=== PATIENT | male | born 1940 | race Caucasian/White ===

== ENCOUNTER 2017-11-05 10:56 | Outpatient (CLI) | payer MEDICARE, OTHER ==
[~2017-11-05] VITALS: Ht 172.7 cm; Wt 81.8 kg
--- NOTE | ~2017-11-05 | OP ---
PATIENT NAME: ALISA GOODEN MEDICAL RECORD: [id number] :38 LOCATION:.CAT ADMISSION DATE: SURGEON: EDIL SPRAGUE MD DATE OF OPERATION: 11/05/2017 PREOPERATIVE DIAGNOSIS: Pacemaker generator at end of life. POSTOPERATIVE DIAGNOSIS: Pacemaker generator at the end of life. PROCEDURE: Pacemaker generator change out. SURGEON: Edil Sprague MD ASSOCIATE STORE DIRECTOR: None. BLOOD LOSS: Minimal. ANESTHESIA: Local with IV sedation. COMPLICATIONS: None. The risks, possible complications, and alternatives to the procedure were explained to the patient. He elects to proceed. OPERATIVE COURSE: The patient was seen in the cardiac catheterization laboratory. The left neck was sterilely prepped and draped. IV sedation was induced by the nursing staff under my direction. A local anesthetic was used to infiltrate the skin and subcutaneous tissue overlying the pacemaker generator. I incised through the scar. I dissected down to the pacemaker generator pocket. This was incised. The pacemaker generator was delivered. I confirmed with the pacemaker agency sales representative the ventricular lead serial number. I then took the wrench and unscrewed the screw on the ventricular dock of the pacemaker. We then checked thresholds, which were appropriate. I placed the ventricular lead in the ventricular dock of the new pacemaker generator and then tightened down with a wrench. I tried to dislodge the lead and was unable to do so. I then confirmed with the pacemaker agency sales representative the serial number of the atrial lead. I unscrewed the atrial lead. We then checked threshold on atrial lead, which were appropriate. I placed the atrial lead in the atrial dock of the new pacemaker generator and tightened down with the wrench. I placed pacemaker generator in the pocket. I irrigated with normal saline. The pacemaker was sutured to the underlying pseudobursa with a 2-0 TiCron. The deep adipose tissue was closed with interrupted 3-0 Vicryls. The subcutaneous adipose tissue was closed with interrupted 3-0 Vicryls. The skin was approximated with a running intracuticular 4-0 Vicryl. A sterile dressing was applied. The patient was then conveyed back to the post-cardiac catheterization area. I will see the patient on a p.r.n. basis. There is no need for the patient to follow up with me in the office unless he develops a complication related to this operative procedure. He will be dismissed home on hydrocodone for pain. TRANSINT:[id number] Voice Confirmation ID: [id number] DOCUMENT ID: [id number] OPERATIVE REPORT [id number] ALISA GOODEN ROBERT MD at 0938 CC: ANNIE MUNGUIA MD [id number] DICTATION DATE: 11/05/17 1430 TELEPRINTER INSTALLER: 11/05/17 1553 DEP CLI 11/05/17 [place] [id number]
--- NOTE | ~2017-11-05 | HEMODYNAMI ---
PATIENT:ALISA GOODEN MEDICAL RECORD: [id number] : 38 LOCATION:D.CAT ADMISSION DATE: 11/05/17 Generatedon:11/05/201713:53 Patient name: ALISA GOODEN Patient #: [id number] SSN: : 1940 Date of study: 11/05/2017 Page: Of Hemodynamic Procedure Report Patient Data Patient Demographics Procedure consent was obtained First Name: ALISA Gender: Male Last Name: GIACOMO : 1940 Middle Initial: W Age: 77 year(s) Patient #: [id number] Race: Additional ID: [id number] Contact details Address: [address] [place] [address] [facility] State: [place] City: [place] Zip code: [address] Past Medical History Allergies Allergen Reaction Date Comments Reported LINDA inhibitors 08/20/2015 Admission Admission Data Admission Date: 11/05/2017 Admission Time: 10:56 Height (in.): 5.7 BSA: 0.33 (m2) Height (cm.): 14.48 BMI: 3938.4 (kg/m2) Weight (lbs.): 182 Weight (kg.): 82.55 Lab Results Lab Result Date: 11/05/2017 Lab Result Time: 0:00 Biochemistry Name Units Result Min Max BUN mg/dl 26 --(----)-* 7 18 Creatinine mg/dl 1.2 --(---*)-- 0.6 1.3 CBC Name Units Result Min Max Hemoglobin g/dl 13.4 -*(----)-- 13.5 17.5 Procedure Procedure Types Cath Procedure Diagnostic Procedure PPM/ICD Permanent Pacer Generator Exg. Miscellaneous Procedures Moderate Sedation up to 15 minutes Procedure Description Procedure Date Procedure Date: 11/05/2017 Procedure Start Time: 13:30 Procedure End Time: 13:52 Procedure Staff Name Function Nicholas Curran RT Monitor Edil White MD Performing Physician Nino Galloway RT Scrub Bo Saini RN Nurse Procedure Data Cath Procedure Fluoroscopy Diagnostic fluoroscopy Total fluoroscopy Time: 0.1 time: 0.1 min min Diagnostic fluoroscopy Total fluoroscopy dose: dose: 2.04 mGy 2.04 mGy Estimated blood loss: 10 ml Procedure Medications Medication Administration Route Dosage 0.9% NaCl I.V. 100 ml/hr Oxygen NC 2 l/min Ancef (1Gm/50ml NS) I.V.P.B 1 g Ancef Irrigation Topical 1 g (1gm/500ml NS) Lidocaine 1% with added to field 20 ml Epi Bupivacaine 0.5% S.Q. 10 ml Versed I.V. 2 mg Fentanyl I.V. 100 mcg Hemodynamics Rest BSA: 0.33 (m2) HGB: 13.4 (g/dl) O2 Consumption: Estimated: 37.3 (ml/min) O2 Cons umption indexed: Estimated:113.03 (ml/min/m) Heart Rate: 66 (bpm) Snapshots Pre Cath Intra NCS Post Cath Vital Signs Time Heart Resp SPO2 etCO2 NIBP (mmHg) Rhythm Pain Sedation Rate (ipm) (%) (mmHg) Status Level (bpm) 13:19:15 65 17 96 33.5 130/88(105) NSR 0 (11) 10(A) , No pain 13:23:27 65 15 97 35.7 132/84(114) NSR 0 (11) 10(A) , No pain 13:27:39 65 18 96 40.2 117/71(95) NSR 0 (11) 10(A) , No pain 13:31:49 59 13 92 42.3 105/67(85) NSR 0 (11) 9(A) , No pain 13:35:57 60 14 97 33.4 117/76(88) NSR 0 (11) 9(A) , No pain 13:40:09 60 9 96 31.2 118/74(89) NSR 0 (11) 9(A) , No pain 13:44:21 58 10 97 31.9 114/69(88) NSR 0 (11) 9(A) , No pain 13:48:31 63 13 98 20 119/74(80) NSR 0 (11) 9(A) , No pain 13:52:30 0 No Cuff NSR 0 (11) 9(A) , No pain Medications Time Medication Route Dose Verified Delivered Reason Notes Effectiv eness by by 13:17:16 0.9% NaCl I.V. 100 Bo Bo Per ml/hr Parveen Saini physician RN RN 13:17:26 Oxygen NC 2 Bo Bo Per l/min Parveen Saini physician RN RN 13:17:45 Ancef I.V.P.B 1 g Bo Bo Per (1Gm/50ml Parveen Saini physician NS) RN RN 13:18:08 Ancef Topical 1 g Bo Bo used for Irrigation Lorigan Lorigan procedure (1gm/500ml RN RN NS) 13:18:36 Lidocaine added 20 ml Bo Bo for local 1% with Epi to Lorigan Lorigan anesthetic field RN RN 13:20:23 Bupivacaine S.Q. 10 ml Bo Bo for local 0.5% Lorigan Lorigan anesthetic RN RN 13:26:00 Versed I.V. 2 mg Bo Bo for Lorigan Lorigan sedation RN RN 13:26:09 Fentanyl I.V. 100 Bo Bo for mcg Lorigan Lorigan sedation RN captain airline pilot Log Time Note 13:00:15 Nicholas Curran RT(R) sent for patient. Start room use. 13:04:58 Time tracking: Regular hours 13:05:01 Plan of Care:Hemodynamics will remain stable., Cardiac rhythm will remain stable., Comfort level will be maintained., Respiratory function will remain adequate., Patient/ family verbilizes understanding of procedure., Procedure tolerated without complication., Recovers from procedure without complications.. 13:05:33 H&P Date Dictated: 11/04/2017 Within 30 days and on chart., H&P Addendum completed by physician on day of procedure. (MUST COMPLETE FOR ALL OUTPATIENTS). 13:06:51 Lab Result : Creatinine 1.2 mg/dl 13:06:51 Lab Result : BUN 26 mg/dl 13:06:51 Lab Result : Hemoglobin 13.4 g/dl 13:08:00 Patient Height : 5.7 inches 13:08:05 Patient Weight : 182 lbs 13:09:17 Patient received from Pre/Post Procedure Room to CCL 3 Alert and oriented. Tansferred to table in Supine position. 13:09:18 Warm blankets applied, and adonis hugger turned on for patient comfort. 13:09:18 Correct patient and procedure confirmed by team. ::20 Signed procedure consent form obtained from patient. 13::21 ECG and BP/O2 sat monitors applied to patient. 13:17:16 0.9% NaCl 100 ml/hr I.V. was administered by Bo Saini RN; Per physician; :17:26 Oxygen 2 l/min NC was administered by Bo Saini RN; Per physician; 13:17:45 Ancef (1Gm/50ml NS) 1 g I.V.P.B was administered by Bo Saini RN; Per physician; 13:18:08 Ancef Irrigation (1gm/500ml NS) 1 g Topical was administered by Bo Saini RN; used for procedure; 13:18:14 Vital chart was started 13:18:36 Lidocaine 1% with Epi 20 ml added to field was administered by Bo Saini RN; for local anesthetic; ::23 Bupivacaine 0.5% 10 ml S.Q. was administered by Bo Saini RN; for local anesthetic; ::29 Baseline sample Acquired. 13::33 Rhythm: paced 13::35 Full Disclosure recording started 13::39 Pre-procedure instructions explained to patient. 13:24:41 Pre-op teaching completed and patient verbalized understanding. 13:24:44 Family in waiting room. ::49 Patient NPO since Breakfast. 13:26:00 Versed 2 mg I.V. was administered by Bo Saini RN; for sedation; ::09 Fentanyl 100 mcg I.V. was administered by Bo Saini RN; for sedation; ::23 Procedure started. 13:29:34 [employer] community service representative ISAAC JOHN present for procedure. 13:29:37 Physician arrived 13::38 --------ALL STOP TIME OUT------ 13:29:40 Final Timeout: patient, procedure, and site verified with staff and physician. All members of the team are in agreement. 13:29:43 Left chest site verified by team. 13::49 Physical assessment completed. ASA score P 2 - A patient with mild systemic disease as per Edil White MD. 13:29:52 Pre sharps counted by scrub and verified by RN: Sutures: 8; Sponges: 5; Stick needles: 0; Skin needles: 2; Blade: 1; Cautery: 1 13:29:56 Sedation plan: IV Moderate Sedation Medication:Versed, Fentanyl 13:30:03 Grounding pad site Left thigh. 13:30:17 Lidocaine 1% w/epi and Bupivacaine 0.5% was administered to left subclavicular area by Edil White MD . 13:31:05 3.0 Vicryl Multipack [id number] opened to sterile field. 13:31:08 3.0 Vicryl Single Pack [id number] opened to sterile field. 13:31:30 Cautery Pushbutton Pencil opened to sterile field. 13:31:31 Mepilex Dressing ([id number]) opened to sterile field. 13:31:33 Cautery Tip Sewage Disposal Worker opened to sterile field. 13:32:[address] Pacemaker [id number] opened to sterile field. 13:33:33 2.0 Ticron Multipack ([id number]) opened to sterile field. 13:33:38 Incision made to left subclavicular area. 13:33:46 Generator pocket made/opened. 13:34:12 PPM Dual was removed.. 13:34:21 Ventricular lead tested. 13:35:17 5.0 TICRON MULTI PACK OF 5 SUTURE OPENRD TO THE FIELD. COUNT OF 14 TOTAL SUTURE 13:35:57 Device pocket was irrigated with Ancef. 13:36:05 PPM Dual was attached to lead(s) and inserted into pocket. 13:37:58 Generator was sutured in place with 2-0 ticron. 13:42:11 Subcutaneous closure was completed with 3-0 vicryl plus. 13:44:41 Skin closure was completed with 3-0 vicryl plus. 13:44:50 Lt Chest incision was dressed with Mepilex dressing. 13:44:55 Procedure ended.(Physican Out) 13:46:51 Post sharps counted by scrub and verified by RN: Sutures: 14; Sponges: 5; Stick needles: 0; Skin needles: 2; Blade: 1; Cautery: 1 13:51:24 Fluoroscopy time 00.10 minutes. 13:51:30 Fluoroscopy dose: 2.04 mGy 13:51:30 Flurop Dose total: 2.04 13:51:37 Estimated blood loss: 10 ml 13:51:43 Post-procedure physical assessment completed. ASA score P 2 - A patient with mild systemic disease as per Edil White MD. 13:51:46 Post procedure instruction explained to patient.Patient verbalizes understanding. 13:51:47 Patient needs reinforcement of post procedure teaching. 13:51:55 Post procedure rhythm: paced 13:52:02 Procedure and supply charges have been captured, reviewed, submitted and are correct. 13:52:39 Vital chart was stopped 13:52:40 See physician's report for complete and final results. 13:52:42 Report given to Pre/Post Procedure Room. 13:52:46 Patient transfered to Pre/Post Procedure Room with Stretcher. 13:52:49 Procedure ended. 13:52:49 Full Disclosure recording stopped 13:52:58 End room use (Document Last) Device Usage Item Name Manufacture Quantity Catalog Hospital Part Current Minimal Lot# / Number Charge Number Stock Stock Serial# Code 3.0 Vicryl Ethicon 1 [id number] 5 Multipack [id number] 3.0 Vicryl Ethicon 1 [id number] [id number] [id number] [id number] 5 Single Pack [id number] Cautery Microtek 1 [id number] 40076 [id number] 5 Pushbutton [employer] Pencil Mepilex Cardinal 1 [id number] 820997 [id number] [id number] 5 Dressing Health (460717) Cautery Tip Microtek 1 [id number] [id number] 169737 142563 5 Sewage Disposal Worker [employer] Medtronic Medtronic 1 [id number] [id number] 2875[address] Pacemaker ADDRS1 2.0 Ticron Ethicon 8 [id number] 189912 37267 198710 5 Multipack ([id number]) Signature Audit [place] Stage Time Signature Unsigned Intra-Procedure 11/05/2017 Nino Galloway 1:53:19 PM RT(R) (CV) Signatures Monitor : Nicholas Curran RT Signature : Date : Time : [address] [address]
[~2017-11-05 10:56] MED LIST: BAYER CHEWABLE81 MG PO; BETAPACE 80 MG80 MG PO; CYCLOBENZAPRINE10 MG PO; HYDROCODONE-APA1 TAB PO; HYZAAR 100-25 T1 TAB PO; PLAVIX75 MG PO; PRAVACHOL20 MG PO; ZYLOPRIM100 MG PO
[2017-11-05] MEDS ORDERED: GLUCOPHAGE500 MG PO (11:28)
[2017-11-05 11:45] VITALS: BP 119/86; Ht 172.7 cm; Wt 81.8 kg
[2017-11-05 11:56] LABS: HEMATOCRIT 40.2 % (42.0-54.0); HEMOGLOBIN 13.4 g/dL (13.5-17.5); MCHC 33.3 g/dL (31.0-37.0); MCV 90.1 fL (80.0-100.0); MEAN PLATELET VOLUME 11.9 fL (7.4-10.4); RBC 4.46 10x6/uL (4.20-6.10); RDW 12.9 % (11.5-14.5); WBC 6.5 10x3/uL (4.8-10.8)
[2017-11-05 12:14] LABS: ANION GAP 14.9 mmol/L (8-16); CALCIUM 9.1 mg/dL (8.5-10.1); CARBON DIOXIDE 26.6 mmol/L (21.0-32.0); CREATININE - SERUM 1.2 mg/dL (0.6-1.3); POTASSIUM - SERUM 4.5 mmol/L (3.5-5.1)
[2017-11-05 12:38] LABS: INR 1.01 (0.85-1.17); PROTIME 12.9 SECONDS (11.6-15.0)
[2017-11-05] MEDS ORDERED: HYDROCODON-ACE1 EAC7 PO (14:18)
[2017-11-05] MEDS ORDERED: BETAPACE 80 MG80 MG PO (15:32)
== END 2017-11-05 16:15 | disposition home or self-care (01) ==
LOC: D.CATH 10:56
PROVIDERS: Internal Medicine Interventional Cardiology
DX: I49.5 Sick sinus syndrome (principal); R42 Dizziness and giddiness; I10 Essential (primary) hypertension; Z95.0 Presence of cardiac pacemaker; I25.10 Atherosclerotic heart disease of native coronary artery without angina pectoris; Z01.812 Encounter for preprocedural laboratory examination

== ENCOUNTER → 2018-12-06 10:41 | Outpatient (CLI) | payer MEDICARE, OTHER ==
[2017-11-05 11:45] VITALS: BMI 27.4
[~2018-12-06 10:41] MED LIST changes: +GLUCOPHAGE500 MG PO; +GLUCOTROL ER2.5 MG PO; +HYDROCODON-ACE1 EAC7 PO
--- NOTE | 2018-12-07 10:45 | ST ---
PATIENT:ALISA GOODEN MEDICAL RECORD: [id number] SEX: M LOCATION:[facility] ORDER #: ADMISSION DATE: 12/06/18 AGE OF PATIENT: 78 REFERRING PHYSICIAN: INTERPRETING PHYSICIAN: ANNIE MUNGUIA MD DATE OF SERVICE: 12/06/2018 PROCEDURE: Nuclear stress test. INDICATION: Angina, abnormal ECG, atrial fibrillation, hypertension, and hyperlipidemia. He was exercised on standard Lexiscan protocol with 31 mCi of sestamibi injected at peak stress, 11 mCi were used previously for rest images. FINDINGS: Gated SPECT reveals preserved ejection fraction at 74% with good wall motioning and thickening and brightening throughout all segments. SPECT imaging Cardiolite was used as myocardial fusion agent. There is reversibility inferiorly. This includes the basal, mid, apical, inferior segments extending into the apex itself. The degree of reversibility is mild to moderate. The amount of myocardial involved is moderate. OVERALL IMPRESSION: 1. This is an abnormal nuclear stress test with reversible ischemia inferiorly. 2. Gated SPECT reveals preserved ejection fraction greater than 60%. In this patient with ongoing symptomatology, the current scan does suggest the presence of hemodynamically significant coronary artery disease. We will proceed with coronary angiography as a followup to this study. TRANSINT:[id number] Voice Confirmation ID: [id number] DOCUMENT ID: [id number] ANNIE MUNGUIA MD at 1045 CC: [id number] DICTATION DATE: 12/06/18 1522 SPEECH THERAPIST TECHNICIAN: 12/07/18 0515 DEP CLI 12/06/18 [place] [id number]
== END | disposition home or self-care (01) ==
LOC: D.HCCARDIO 10:41
DX: I20.9 Angina pectoris, unspecified (principal)

== ENCOUNTER 2018-12-13 09:16 | Outpatient (CLI) | payer MEDICARE, OTHER ==
[~2018-12-13] VITALS: Ht 172.7 cm; Wt 79.5 kg
--- NOTE | ~2018-12-13 | HEMODYNAMI ---
PATIENT:ALISA GOODEN MEDICAL RECORD: [id number] : 38 LOCATION:D.CAT ADMISSION DATE: 12/13/18 Generatedon:12/13/201811:21 Patient name: ALISA GOODEN Patient #: [id number] SSN: : 1940 Date of study: 12/13/2018 Page: Of Hemodynamic Procedure Report Patient Data Patient Demographics Procedure consent was obtained First Name: ALISA Gender: Male Last Name: GIACOMO : 1940 Middle Initial: W Age: 78 year(s) Patient #: [id number] Race: Additional ID: [id number] Contact details Address: [address] [place] [address] [facility] State: [place] City: [place] Zip code: [address] Past Medical History Allergies Allergen Reaction Date Comments Reported LINDA inhibitors 08/20/2015 Other allergy 12/13/2018 LINDA Inhibitors Admission Admission Data Admission Date: 12/13/2018 Admission Time: 9:16 Lab Results Lab Result Date: 12/13/2018 Lab Result Time: 9:40 Biochemistry Name Units Result Min Max BUN mg/dl 25 --(----)-* 7 18 Creatinine mg/dl 1.1 --(--*-)-- 0.6 1.3 CBC Name Units Result Min Max Hematocrit % 43.1 --(*---)-- 42 54 Hemoglobin g/dl 14.6 --(-*--)-- 13.5 17.5 Procedure Procedure Types Cath Procedure Diagnostic Procedure LHC LHC w/Coronaries FFR/IVUS Intra-Coronary IVUS Initial PCI Procedure Coronary Stent Coronary Stent Initial x2 Procedure Description Procedure Date Procedure Date: 12/13/2018 Procedure Start Time: 11:01 Procedure End Time: 11:17 Procedure Staff Name Function Jony Orozco MD Performing Physician Kobi Johnson RT Director Script Buster Jefferson RT Monitor Milvia Pollack RT Scrub Sidney Jolly RN Nurse Procedure Data Cath Procedure Fluoroscopy Diagnostic fluoroscopy Total fluoroscopy Time: 4.2 time: 4.2 min min Diagnostic fluoroscopy Total fluoroscopy dose: 767 dose: 767 mGy mGy Contrast Material Contrast Material Type Amount (ml) Isovue 300 65 Entry Location Entry Primary Successful Side Size Upsize Upsize Entry Closure Puckett ccessful Closure Location (Fr) 1 (Fr) 2 (Fr) Remarks Device Remarks Femoral Right 6 Fr Mechanical artery Short Compression Estimated blood loss: 10 ml Diagnostic catheters Device Type Used For End Catheter Placement DIAGNOSTIC [place] 110cm 5 Procedure Fr catheter ([id number]) Procedure Complications No complications Procedure Medications Medication Administration Route Dosage Oxygen etCO2 Nasal cannula 2 l/min Lidocaine 2% added to field 20 Heparin Flush Bag added to field 2 bags (1000units/500ml NS) 0.9% NaCl I.V. 100 ml/hr Radial Cocktail I.A. 1 syringe (Verapomil 2mg/Nitro 400mcg/Heparin 1500units) Versed I.V. 1 mg Fentanyl I.V. 50 mcg Versed I.V. 1 mg Fentanyl I.V. 50 mcg Heparin Bolus I.V. 4000 units Hemodynamics Rest HGB: 14.6 (g/dl) Heart Rate: 60 (bpm) Snapshots Pre Cath Intra NCS Post Cath Vital Signs Time Heart Resp SPO2 etCO2 NIBP Rhythm Pain Sedation Rate (ipm) (%) (mmHg) (mmHg) Status Level (bpm) 10:54:44 60 16 93 18.2 118/76(92) NSR 0 (11) 10(A) , No pain 10:58:50 60 17 93 31.1 104/75(86) NSR 0 (11) 10(A) , No pain 11:02:54 60 16 94 33.4 110/67(84) NSR 0 (11) 9(A) , No pain 11:07:02 60 18 93 32.6 95/62(78) NSR 0 (11) 9(A) , No pain 11:11:03 60 17 92 31.9 97/60(80) NSR 0 (11) 9(A) , No pain 11:15:05 60 18 94 34.2 104/66(81) NSR 0 (11) 10(A) , No pain Medications Time Medication Route Dose Verified Delivered Reason Not es Effectiveness by by 10:52:59 Oxygen etCO2 2 l/min Jony Little used for Nasal Tausandy Jolly remanufacturing technician cannula 10:53:05 Lidocaine 2% added 20ml Jony Little used for to vial Pam Jolly RN procedure field 10:53:12 Heparin Flush added 2 bags Jony Little used for Bag to Pam Jolly RN procedure (1000units/500ml field NS) 10:53:20 0.9% NaCl I.V. 100 Jony Little Per physician ml/hr Pam Jolly RN 11:00:18 Versed I.V. 1 mg Jony Little for sedation Pam Jolly RN 11:00:24 Fentanyl I.V. 50 mcg Jony Little for sedation Pam Jolly RN 11:02:43 Radial Cocktail I.A. 1 Jony Borges for (Verapomil syringe Pam Orozco MD vasodilation 2mg/Nitro 400mcg/Heparin 1500units) 11:02:49 Versed I.V. 1 mg Jony Little for sedation Pam Jolly RN 11:02:52 Fentanyl I.V. 50 mcg Jony Little for sedation Pam Jolly RN 11:07:12 Heparin Bolus I.V. 4000 Jony Little for juanis ified units Pam Jolly RN anticoagulation with dr orozco Procedure Log Time Note 10:35:19 Kobi Johnson RT(R) sent for patient. Start room use. 10:35:20 Signed procedure consent form obtained from patient. 10:35:22 Diagnostic Cath status Elective 10:35:24 Time tracking: Regular hours (M-F 7:00 - 5:00) 10:35:28 Plan of Care:Hemodynamics will remain stable., Cardiac rhythm will remain stable., Comfort level will be maintained., Respiratory function will remain adequate., Patient/ family verbilizes understanding of procedure., Procedure tolerated without complication., Recovers from procedure without complications.. 10:42:05 Patient received from Pre/Post Procedure Room to CCL 2 Alert and oriented. Tansferred to table in Supine position. 10:42:07 Warm blankets applied, and adonis hugger turned on for patient comfort. 10:42:08 Correct patient and procedure confirmed by team. 10:42:48 ECG and BP/O2 sat monitors applied to patient. 10:42:58 H&P Date Dictated: 12/02/2018 Within 30 days and on chart., H&P Addendum completed by physician on day of procedure. (MUST COMPLETE FOR ALL OUTPATIENTS). 10:52:59 Oxygen 2 l/min etCO2 Nasal cannula was administered by Sidney Jolly RN; used for procedure; 10:53:05 Lidocaine 2% 20ml vial added to field was administered by Sidney Jolly RN; used for procedure; 10:53:12 Heparin Flush Bag (1000units/500ml NS) 2 bags added to field was administered by Sidney Jolly RN; used for procedure; 10:53:20 0.9% NaCl 100 ml/hr I.V. was administered by Sidney Jolly RN; Per physician; 10:53:36 Vital chart was started 10:55:24 Baseline sample Acquired. 10:55:29 Rhythm: sinus rhythm , paced 10:55:30 Full Disclosure recording started 10:55:31 Pre-procedure instructions explained to patient. 10:55:31 Pre-op teaching completed and patient verbalized understanding. 10:55:33 Family in waiting room. 10:55:34 Patient NPO since Midnight. 10:56:07 Patient allergic to Other allergyACE Inhibitors 10:56:09 Is the patient allergic to Iodine/contrast media? No. 10:56:10 Is patient on blood thinner?Yes 10:56:11 ACC The patient was administered the following blood thiners within the last 24 hours: ACCPlavix 10:56:13 Patient diabetic? Yes. 10:56:13 If diabetic: On Metformin? Yes 10:56:16 If on Metformin: Last Dose? 12/12/2018 10:56:18 Previous problem with sedation/anesthesia? No ? 10:56:19 Snore? Yes 10:56:20 Sleep apnea? No 10:56:21 Deviated septum? No 10:56:22 Opens mouth fully? Yes 10:56:22 Sticks out tongue? Yes 10:56:24 Airway obstruction? No ? 10:56:26 Dentures? No ? 10:56:27 Modified Viktor's test Ulnar < 7 seconds 10:56:29 Patient pain scale 0/10 ?. 10:56:34 IV patent on arrival in left forearm with 0.9% NaCl at [facility]. 10:57:05 Lab Result : BUN 25 mg/dl 10:57:05 Lab Result : Hemoglobin 14.6 g/dl 10:57:05 Lab Result : Creatinine 1.1 mg/dl 10:57:05 Lab Result : Hematocrit 43.1 % 10:57:07 Lab results completed and on chart. 10:57:09 Right Radial & Right Groin area was prepped with chlora-prep and draped in sterile fashion 10:57:10 Alarms reviewed by RWilfredo N. 10:57:10 Sharps counted by scrub and verified by R.N. 10:57:49 Physician paged 10:57:51 Use device set Radial Dx or PCI 10:57:53 ACIST Syringe (75838) opened to sterile field. 10:57:54 Medline Cath Pack ([id number]) opened to sterile field. 10:57:54 Bag Decanter (2002S) opened to sterile field. 10:57:55 ACIST Hand Control (06552) opened to sterile field. 10:57:55 ACIST Manifold (08387) opened to sterile field. 10:57:56 Tegaderm 4 x 4 (1626W) opened to sterile field. 10:57:56 MBrace Wrist Support ([id number]) opened to sterile field. 10:57:57 SHEATH 6FR Slender (78-2550) opened to sterile field. 10:57:58 DIAGNOSTIC WIRE .035 260cm J wire (041398) opened to sterile field. 10:59:06 Zero performed for pressure channel P1 10:59:51 Physician arrived 10:59:51 --------ALL STOP TIME OUT------ 10:59:52 Final Timeout: patient, procedure, and site verified with staff and physician. All members of the team are in agreement. 10:59:53 Right Radial & Right Groin site verified by team. 10:59:56 Fire Safety Assessment: A--An alcohol-based skin anteseptic being used preoperatively., C--Open oxygen or nitrous oxide is being used., D--An ESU, laser, or fiber-optic light is being used. 10:59:59 Physical assessment completed. ASA score P 2 - A patient with mild systemic disease as per Jony Orozco MD. 11:00:01 Sedation plan: IV Moderate Sedation Medication:Versed, Fentanyl 11:00:18 Versed 1 mg I.V. was administered by Buffie Jolly RN; for sedation; 11:00:24 Fentanyl 50 mcg I.V. was administered by Sidney Jolly RN; for sedation; 11::44 Procedure started. 11:01:48 Local anesthetic to right radial artery with Lidocaine 2% by Jony Orozco MD.INITIAL ACCESS ONLY 11::58 A 6 Fr Short sheath was inserted into the Right Femoral artery 11:02:05 A DIAGNOSTIC [place] 110cm 5 Fr catheter ([id number]) was advanced over the wire and used for Procedure. 11:02:43 Radial Cocktail (Verapomil 2mg/Nitro 400mcg/Heparin 1500units) 1 syringe I.A. was administered by Jony Orozco MD; for vasodilation; 11::49 Versed 1 mg I.V. was administered by Sidney Jolly RN; for sedation; 11::52 Fentanyl 50 mcg I.V. was administered by Sidney Jolly RN; for sedation; 11:03:13 LV gram done using ANDREWS 11:03:17 Injector settings: Ml/sec: 5, Volume: 15, 11:03:24 LV hemodynamics recorded. 11:03:40 EF : 55 % 11:04:12 RCA angiography performed. 11:04:30 Catheter exchanged over wire. 11:04:41 GUIDE 6FR EBU 3.0 catheter ([id number]) opened to sterile field. 11:04:51 6 Fr ebu 3 guide catheter was inserted over the wire 11:05:27 LCA angiography performed. 11:06:09 CHOICE PT Extra Support 182cm wire ([id number]) opened to sterile field. 11:06:10 INFLATOR Merit BasixCompak (PD1125) opened to sterile field. 11:06:14 [place] IVUS Catheter (13808G) opened to sterile field. 11:06:58 choice pt es wire advanced. 11:07:00 Wire advanced across lesion. 11:07:12 Heparin Bolus 4000 units I.V. was administered by Sidney Jolly RN; for anticoagulation; verified with dr orozco 11:09:12 Place stent Inflation Number: 1 A ARIEL RX 3.5 x 18 stent ([id number]) was prepped and advanced across the Prox LAD. The stent was deployed at 17 SURENDRA for 0:10 (min:sec). 11::26 Stent catheter was removed intact over wire. 11:09:30 Wire redirected to cx. 11:09:33 IVUS catheter advanced over wire. 11:09:36 IVUS pass to Circ lesion performed. 11:12:22 IVUS catheter removed over wire. 11:13:23 Place stent Inflation Number: 1 A INTEGRITY 4.0 x 18 stent ([id number]) was prepped and advanced across the Prox CX. The stent was deployed at 17 SURENDRA for 0:10 (min:sec). 11:13:26 Stent catheter was removed intact over wire. 11:13:27 Wire removed. 11:13:28 Guide catheter removed. 11:13:30 TR BAND Standard ([id number]) opened to sterile field. 11:13:39 Sheath removed intact; hemostasis achieved with Mechanical Compression to the Right Femoral artery. 11:13:40 Procedure ended.(Physican Out) 11:13:44 Contrast amount:Isovue 300 65ml. 11:14:54 Fluoroscopy time 04.20 minutes. 11:15:03 Fluoroscopy dose: 767 mGy 11:15:03 Flurop Dose total: 767 11:15:05 Sharps counted by scrub and verified by R.N. 11:15:13 TR band inflated with 12cc of air. 11:15:14 Insertion/operative site no bleeding no hematoma. 11:15:18 Post right radial artery:stable, soft, clean and dry 11:15:23 Post-procedure physical assessment completed. ASA score P 2 - A patient with mild systemic disease as per Jony Orozco MD. 11:15:28 Post procedure rhythm: unchanged. 11:15:30 Estimated blood loss: 10 ml 11:15:31 Post procedure instruction explained to patient.Patient verbalizes understanding. 11:15:33 Patient needs reinforcement of post procedure teaching. 11:16:16 Procedure type changed to Cath procedure, Diagnostic procedure, LHC, LHC w/Coronaries, FFR/IVUS, Intra-Coronary IVUS Initial, PCI procedure, Coronary Stent, Coronary Stent Initial x2 11:16:57 Procedure and supply charges have been captured, reviewed, submitted and are correct. 11:16:59 Procedure Complication : No complications 11:17:00 Vital chart was stopped 11:17:01 See physician's report for complete and final results. 11:17:02 Report given to Pre/Post Procedure Room. 11:17:04 Patient transfered to Pre/Post Procedure Room with Stretcher. 11:17:05 Procedure ended. 11:17:05 Full Disclosure recording stopped 11:17:09 End room use (Document Last) Intervention Summary Intervention Notes Time ActionType Lesion and Equipment Used Action# Pressure Duration Attributes 11:09:12 Place stent Prox LAD ARIEL RX 3.5 x 1 17 00:10 18 stent ([id number]) 11:13:23 Place stent Prox CX INTEGRITY 4.0 1 17 00:10 x 18 stent ([id number]) Device Usage Item Name Manufacture Quantity Catalog Number Hospital Part Current M inimal Lot# / Charge Number Stock Stock Serial# Code ACIST Syringe Acist 1 52155 251172 295664 885700 2 0 (81939) Medical Systems Inc Medline Cath Medline 1 [id number] 285270 82427 180477 5 Pack ([id number]) Bag Decanter Microtek 1 2001S 399135 47814 050774 5 (2001S) Medical Inc. ACIST Hand Acist 1 66873 770988 180232 212159 5 Control Medical (45419) Systems Inc ACIST Manifold Acist 1 67893 804390 414753 893362 5 (48627) Medical Systems Inc Tegaderm 4 x 4 3M 1 1626W 340032 060400 220076 5 (1626W) MBrace Wrist Advanced 1 140-0250-00 212941 27103 011933 5 Support Vascular ([id number]) Dynamics SHEATH 6FR Terumo 1 [id number] 356391 130404 884134 5 Slender (80-1060) DIAGNOSTIC St [place] 1 365623 825849 384202 719183 3 0 WIRE .035 260cm J wire (653879) DIAGNOSTIC Terumo 1 40-2060 959791 532624 458943 5 [place] 110cm 5 Fr catheter (743447) GUIDE 6FR EBU Medtronic 1 [id number] 353496 19522 588304 0 3.0 catheter ([id number]) CHOICE PT [place] 1 [id number] 787950 458656 857063 5 Extra Support Scientific 182cm wire ([id number]) INFLATOR Merit Merit 1 LQ4071 707056 314241 145010 1 5 [facility] (FP6977) [place] 1 99008D 107094 106822 980269 8 [place] IVUS Catheter (65926H) ARIEL RX 3.5 x Medtronic 1 [id number] 927963 7086773 134650 5 [id number] 18 stent ([id number]) INTEGRITY 4.0 Medtronic 1 [id number] 672881 891039 611879 5 [id number] x 18 stent ([id number]) TR BAND Terumo 1 [id number] 857188 601620 399468 4 0 Standard ([id number]) Signature Audit [place] Stage Time Signature Unsigned Intra-Procedure 12/13/2018 Buster Jefferson 11:20:55 AM RT(R) Signatures Monitor : Buster Jefferson RT Signature : Date : Time : [place] [id number] [place] [address]
[~2018-12-13 09:16] MED LIST changes: -GLUCOTROL ER2.5 MG PO
[2018-12-13] MEDS ORDERED: GLUCOTROL ER2.5 MG PO (09:38)
[2018-12-13] MEDS ORDERED: PLAVIX75 MG PO (09:39)
[2018-12-13 09:46] VITALS: BP 147/89; Ht 172.7 cm; Wt 79.5 kg
[2018-12-13 10:02] LABS: BASOPHILS 0.3 % (0-2); EOSINOPHILS 6.6 % (0-7); HEMATOCRIT 43.1 % (42.0-54.0); HEMOGLOBIN 14.6 g/dL (13.5-17.5); IMMATURE GRANULOCYTES 0.2 % (0-5); LYMPHOCYTES 21.6 % (15-50); MCH 30.6 pg (26.0-34.0); MCHC 33.9 g/dL (31.0-37.0); MCV 90.4 fL (80.0-100.0); MEAN PLATELET VOLUME 11.5 fL (7.4-10.4); MONOCYTES 11.3 % (2-11); RBC 4.77 10x6/uL (4.20-6.10); RDW 13.8 % (11.5-14.5); WBC 6.2 10x3/uL (4.8-10.8)
[2018-12-13 10:14] LABS: ANION GAP 13.3 mmol/L (8-16); CALCIUM 8.8 mg/dL (8.5-10.1); CARBON DIOXIDE 28.7 mmol/L (21.0-32.0); CREATININE - SERUM 1.1 mg/dL (0.6-1.3)
[2018-12-13 10:24] LABS: PLATELET COUNT 165 10x3/uL (130-400)
[2018-12-13] MEDS ORDERED: BAYER CHEWABLE81 MG PO (11:34)
--- NOTE | 2018-12-13 11:37 | NUR ---
RECIEVED TO ROOM VIA STRETCHER FROM LOGISTICS PLANNING MANAGER WITH TR BAND TO R/WRIST CDI NO BLEEDING OR HEMATOMA NOTED. PATIENT CONNECTED TO MONITOR FOR OBSERVATION WITH CHEST PAIN DENIED
--- NOTE | 2018-12-13 11:51 | NUR ---
TR BAND TO R/WRIST IS CDI NO BLEEDING OR HEMATOMA NOTED. VSS FAMILY IS PRESENT AT BEDSIDE. PATIENT TOLERATING SANDWICH AND SODA WITH NAUSEA DENIED
--- NOTE | 2018-12-13 12:07 | NUR ---
TR BAND REMAINS CDI WITH PATIENT SITTING HOB UP 30 DEGREES. CALL LIGHT IN REACH WITH FAMILY AT SIDE
--- NOTE | 2018-12-13 12:35 | NUR ---
TR BAND REMAINS CDI WITH NO BLEEDING OR HEMATOMA. PATIENT ALERT AND ORIENTED WITH CHEST PAIN DENIED
--- NOTE | 2018-12-13 13:00 | NUR ---
RESTING QUIETLY WITH EYES CLOSED. VSS AND TR BAND TO R/WRIST IS CDI NO BLEEDING NOTED
--- NOTE | 2018-12-13 13:22 | NUR ---
PATIENT CONTINUES TO REST WITH NO DISTRESS NOTED TR BAND REMAINS INTACT TO R/WRIST
--- NOTE | 2018-12-13 13:44 | NUR ---
PATIENT VOICED NO PAIN OR NEEDS. TR BAND REMAINS CDI WITH NO BLEEDING NOTED CALL LIGHT IN REACH WITH BED IN LOCKED POSITION
--- NOTE | 2018-12-13 14:15 | NUR ---
REPOSITIONED FOR COMFORT VSS AND CHEST PAIN IS DENIED TR BAND REMAINS CDI
--- NOTE | 2018-12-13 14:25 | NUR ---
4 CC AIR REMOVED FROM TR BAND WITH NO BLEEDING OR HEMATOMA NOTED
--- NOTE | 2018-12-13 14:45 | NUR ---
4 CC AIR REMOVED FROM TR BAND WITH NO BLEEDING OR HEMATOMA NOTED. PATIENT DENIED PAIN OR NEEDS CALL LIGHT IN REACH
--- NOTE | 2018-12-13 14:54 | NUR ---
4 CC AIR REMOVED FROM TR BAND WITH NO BLEEDING OR HEMATOMA. PIV REMOVED WITH DRESSING APPLIED. PATIENT DENIED CHEST PAIN UP TO GET DRESSED FOR DISCHARGE HOME NO DISTRESS
--- NOTE | 2018-12-13 15:00 | NUR ---
DISCUSSED DISCHARGE INSTRUCTIONS WITH PT AND PT'S FAMILY. THEY VOICED UNDERSTANDING. TR BAND REMOVED AND DRESSING APPLIED. NO BLEEDING/HEMATOMA NOTED. RIGHT WRIST BRACE ON AND PT INSTRUCTED TO KEEP ON FOR 2 HOURS ONCE HE WAS HOME.
--- NOTE | 2018-12-13 15:10 | NUR ---
PT AMBULATED TO RESTROOM. VOIDED WITHOUT DIFFICULTY.
--- NOTE | 2018-12-13 15:25 | NUR ---
PT TAKEN OUT TO VEHICLE BY WHEELCHAIR. RIGHT WRIST DRESSING C/D/I. NO BLEEDING/HEMATOMA NOTED. NO S/S OF DISTRESS NOTED. ALL BELONGINGS AND PAPERWORK IN HAND.
--- NOTE | 2018-12-21 11:18 | OP ---
PATIENT NAME: ALISA GOODEN MEDICAL RECORD: [id number] :38 LOCATION:D.CAT ADMISSION DATE: SURGEON: ANNIE MUNGUIA MD DATE OF OPERATION: 12/13/2018 DATE OF SERVICE: 12/13/2018 PROCEDURES: 1. PTCA stent LAD. 2. PTCA stent left circumflex. 3. Intravascular ultrasound. 4. Left heart catheterization. 5. Selective coronary angiography. 6. Left ventriculogram. INDICATION: Angina and coronary artery disease. PROCEDURE IN DETAIL: After informed consent was obtained and after a detailed description of risks, benefits as well as alternative therapies, the patient elected to proceed with angiogram and angioplasty. The right radial area was prepped and draped in normal sterile fashion. Right radial artery was cannulated via modified Seldinger technique with placement of 6-Maldivian sheath. All catheters exchanged through this sheath. FINDINGS: Left ventriculogram was performed in standard 30-degree ANDREWS view, reveals good cardiac wall motion throughout all segments. Overall ejection fraction estimated at 60%. SELECTIVE CORONARY ANGIOGRAPHY: 1. Left main is with no significant angiographic disease. 2. Left anterior descending has previously placed stent proximally with 80+ percent in-stent restenosis. 3. Left circumflex has 76% stenosis in the mid vessel confirmed by intravascular ultrasound. 4. Right coronary has moderate irregularities, but no flow-limiting stenosis. PTCA STENT OF THE LAD: The stent used was a 3.5 x 18-mm [place]. Result was 0% residual stenosis. PTCA STENT OF THE OF THE LEFT CIRCUMFLEX: The stent used was a 4.0 x 18-mm Integrity. Result was 0% residual stenosis. OVERALL IMPRESSION: Successful percutaneous transluminal coronary angioplasty stent of the left anterior descending and circumflex, both going from 75% to 80% initial stenosis to 0% residual. TRANSINT:[id number] Voice Confirmation ID: [id number] DOCUMENT ID: [id number] OPERATIVE REPORT [id number] ALISA GOODEN JEFFREY MD at 1118 CC: [id number] DICTATION DATE: 12/13/18 1118 DEPORTATION EXAMINER: 12/13/18 1152 DEP CLI 12/13/18 [place] [address]
== END 2018-12-13 15:25 | disposition home or self-care (01) ==
LOC: D.CATH 09:16
PROVIDERS: Internal Medicine Interventional Cardiology
DX: I25.119 Atherosclerotic heart disease of native coronary artery with unspecified angina pectoris (principal)
CPT/HCPCS: 92928; 93458; 92978; C9600

== ENCOUNTER 2019-11-14 15:57 | Inpatient (IN) | payer MEDICARE, OTHER ==
[~2019-11-14] VITALS: Ht 172.7 cm; Wt 75.0 kg
[~2019-11-14 15:57] MED LIST changes: +GLUCOTROL ER2.5 MG PO
[2019-11-14 16:23] VITALS: BP 98/62
[2019-11-14 17:10] LABS: APPEARANCE CLEAR (CLEAR); BILIRUBIN NEGATIVE (NEGATIVE); COLOR YELLOW (YELLOW); GLUCOSE NEGATIVE (NEGATIVE); KETONE NEGATIVE (NEGATIVE); NITRITE NEGATIVE (NEGATIVE); PROTEIN TRACE mg/dL (NEGATIVE); SPECIFIC GRAVITY 1.015 (1.005-1.020); UROBILINOGEN NORMAL (NORMAL)
[2019-11-14 17:30] LABS: BASOPHILS 0.2 % (0-2); EOSINOPHILS 0.7 % (0-7); HEMATOCRIT 45.5 % (42.0-54.0); HEMOGLOBIN 15.3 g/dL (13.5-17.5); IMMATURE GRANULOCYTES 0.3 % (0-5); LYMPHOCYTES 5.3 % (15-50); MCH 31.2 pg (26.0-34.0); MCHC 33.6 g/dL (31.0-37.0); MCV 92.9 fL (80.0-100.0); MEAN PLATELET VOLUME 11.7 fL (7.4-10.4); MONOCYTES 5.6 % (2-11); NEUTROPHILS 87.9 % (40-80); PLATELET COUNT 141 10x3/uL (130-400); RDW 13.6 % (11.5-14.5); WBC 12.8 10x3/uL (4.8-10.8)
[2019-11-14 17:37] LABS: ANION GAP 15.1 mmol/L (8-16); CARBON DIOXIDE 27.7 mmol/L (21.0-32.0); CREATININE - SERUM 1.3 mg/dL (0.6-1.3); POTASSIUM - SERUM 3.8 mmol/L (3.5-5.1)
[2019-11-14 17:43] LABS: ALBUMIN 3.8 g/dL (3.4-5.0); BILIRUBIN - TOTAL 0.59 mg/dL (0.2-1.3)
--- NOTE | 2019-11-14 19:29 | NUR ---
GEORGE FINISHED AT 1928 AND WAS DC'D BEFORE TAKING PT TO FLOOR
[2019-11-14 20:00] VITALS: BP 94/59
[2019-11-14 20:25] VITALS: BP 94/59; Ht 172.7 cm; Wt 75.0 kg
[2019-11-15 04:00] VITALS: BP 95/58
[2019-11-15 06:13] LABS: BASOPHILS 0.1 % (0-2); EOSINOPHILS 0.1 % (0-7); HEMATOCRIT 41.5 % (42.0-54.0); HEMOGLOBIN 13.4 g/dL (13.5-17.5); IMMATURE GRANULOCYTES 0.2 % (0-5); LYMPHOCYTES 5.8 % (15-50); MCH 30.5 pg (26.0-34.0); MCHC 32.3 g/dL (31.0-37.0); MCV 94.3 fL (80.0-100.0); MONOCYTES 5.9 % (2-11); NEUTROPHILS 87.9 % (40-80); PLATELET COUNT 142 10x3/uL (130-400); RDW 14.2 % (11.5-14.5)
[2019-11-15 06:42] LABS: ANION GAP 10.5 mmol/L (8-16); CARBON DIOXIDE 30.5 mmol/L (21.0-32.0); CREATININE - SERUM 1.3 mg/dL (0.6-1.3)
--- NOTE | 2019-11-15 07:20 | NUR ---
RECIEVE REPORT. ALERT AND ORIENTED X4. RESTING IN BED. DENIES ANY NEEDS. RESPIRATIONS EVEN AND REGULAR. CONTINUE PLAN OF CARE AND SAFETY PRECAUTIONS.
[2019-11-15 09:47] VITALS: BP 102/60
[2019-11-15 13:04] VITALS: BP 90/56
[2019-11-15 16:26] VITALS: BP 93/58
[2019-11-15 20:00] VITALS: BP 97/62
--- NOTE | 2019-11-15 20:23 | NUR ---
PT OUT FOR CHEST X-RAY.
[2019-11-16] VITALS: BP 99/55
[2019-11-16 04:00] VITALS: BP 102/61
--- NOTE | 2019-11-16 04:28 | NUR ---
PT HAVING A BATH AT THIS TIME. PROVIDED PT WITH FRESH GOWN AND LINEN.
[2019-11-16 05:41] LABS: ANION GAP 8.9 mmol/L (8-16); CALCIUM 7.9 mg/dL (8.5-10.1); CARBON DIOXIDE 30.7 mmol/L (21.0-32.0); CREATININE - SERUM 1.4 mg/dL (0.6-1.3); POTASSIUM - SERUM 3.6 mmol/L (3.5-5.1)
[2019-11-16 05:51] LABS: BASOPHILS 0.1 % (0-2); EOSINOPHILS 1.1 % (0-7); HEMATOCRIT 39.4 % (42.0-54.0); HEMOGLOBIN 12.8 g/dL (13.5-17.5); IMMATURE GRANULOCYTES 0.1 % (0-5); LYMPHOCYTES 16.4 % (15-50); MCH 30.5 pg (26.0-34.0); MCHC 32.5 g/dL (31.0-37.0); MCV 93.8 fL (80.0-100.0); MEAN PLATELET VOLUME 12.1 fL (7.4-10.4); MONOCYTES 8.5 % (2-11); NEUTROPHILS 73.8 % (40-80); PLATELET COUNT 138 10x3/uL (130-400); RDW 14.3 % (11.5-14.5)
[2019-11-16 05:54] LABS: WBC 8.9 10x3/uL (4.8-10.8)
[2019-11-16 09:18] VITALS: BP 116/65
[2019-11-16 12:12] VITALS: BP 113/76
--- NOTE | 2019-11-16 12:47 | NUR ---
REPORT OFF TO LORE PADGETT TO RESUME PLAN OF CARE.
[2019-11-16] MEDS ORDERED: AUGMENTIN 875-11 TAB PO (13:15)
--- NOTE | 2019-11-16 13:16 | HP ---
PATIENT: ALISA GOODEN MEDICAL RECORD: [id number] ACCOUNT: [id number] LOCATION:[address] : [birth year] ADMISSION DATE: 11/14/19 PCP: FEDERICO JOHNSON MD HISTORY AND PHYSICAL EXAMINATION DATE OF ADMISSION: 11/14/2019. CHIEF COMPLAINT: Cough, fever, feeling lousy. HISTORY OF PRESENT ILLNESS: This is an 79-year-old white male who states he started feeling lousy on the afternoon of 11/13/2019. He states he just had no energy. He had some dizziness, a little nausea. On the morning of 11/14/2019, he [facility] a [email or web address]. He felt worse. He was shaking. The neighbor noticed this and he was brought to the Emergency Room. He states he felt a little better in triage, but he had a temperature in the Emergency Department. His white count was a little elevated. Chest x-ray was read as mild bibasilar airspace disease, more consistent with atelectasis, but with his fever and elevated white count, it was felt he probably has an early pneumonia. He is admitted. PAST MEDICAL AND SURGICAL HISTORY: He has diabetes, coronary artery disease, paroxysmal atrial fibrillation, gout, and hyperlipidemia. PAST SURGICAL HISTORY: Retinal eye surgery, pacemaker placement. DRUG ALLERGIES: POSSIBLY TO AN LINDA INHIBITOR. HOME MEDICATIONS: Glipizide ER 2.5 mg once a day, hydrochlorothiazide 25 mg once a day, losartan 100 mg once a day, pravastatin 20 mg once a day, sotalol 120 mg twice a day, metformin 500 mg twice a day, and aspirin 81 mg once a day. HABITS: Former smoker, quit long time ago. No alcohol or drugs. SOCIAL HISTORY: , retired. His has dementia. FAMILY HISTORY: Both parents are . His father had a stroke and history of cardiac arrhythmia. His mother had a stroke and history of diabetes. REVIEW OF SYSTEMS: GENERAL: No major weight changes. HEENT: No particular sinus or allergy problems. RESPIRATORY: No history of COPD, asthma, or pneumonia. CARDIAC: See above history. He is followed by Dr. Orozco. GASTROINTESTINAL: He has occasional heartburn. GENITOURINARY: No significant problems there. MUSCULOSKELETAL: He has history of gout, but it has been well controlled. NEUROLOGIC: No migraines. No seizures. PSYCHIATRIC: Denies depression or melancholia. PHYSICAL EXAMINATION: VITAL SIGNS: His initial temperature in the ER yesterday was 97.9, but within the hour, it was up to 102.0; his blood pressure was 119/68 initially. GENERAL: He has had a few rigors. Otherwise, he is feeling a little better. SKIN: Warm and dry. HEENT: Grossly within normal limits. HISTORY AND PHYSICAL [id number] ALISA GOODEN NECK: Supple. HEART: Regular rate and rhythm without murmur. LUNGS: Decreased breath sounds in the bases bilaterally. ABDOMEN: Soft. EXTREMITIES: No edema. NEUROLOGIC: Intact. LABORATORY DATA AND DIAGNOSTIC STUDIES: CBC with a white count of 12,800, hemoglobin 15.3, hematocrit 45.5. Basic metabolic panel is okay except BUN a little elevated at 26, creatinine 1.3. Liver functions are all normal. Influenza A and B are both negative. Urinalysis is normal. Chest x-ray read as mild bibasilar airspace disease. ASSESSMENT: Pneumonia with fever, elevated white count, and chills. PLAN: He is admitted, started on Zithromax and Rocephin. Blood cultures are obtained. He is treated with updrafts. We will hold his blood pressure medications. Monitor sugar. Start Lovenox and Pepcid. Other tests and procedures as warranted. TRANSINT:[id number] Voice Confirmation ID: [id number] DOCUMENT ID: [id number] FEDERICO JOHNSON MD at 1316 CC: [id number] DICTATION DATE: 11/15/19 0851 MANAGER PRACTICE: 11/15/19 1124 ADM IN [place] [address] [place] [address]
--- NOTE | 2019-11-16 13:46 | NUR ---
ORDERED DOSE OF AUGMENTIN GIVEN AT THIS TIME. PT RESTING COMFORTABLY IN BED, DENIES ANY NEEDS AT THIS TIME. CALL LIGHT IN REACH, NAD NOTED, WILL CONTINUE TO MONITOR.
--- NOTE | 2019-11-16 14:55 | MORECARE ---
CASE MANAGEMENT DISCHARGE SUMMARY PATIENT: ALISA GOODEN UNIT: [id number] ADM DATE: 11/14/19 AGE: 79 : [birth year] SEX: M ROOM/BED: D.2134 AUTHOR: RAMON,DOC PHYSICIAN: REFERRING PHYSICIAN: FEDERICO JOHNSON MD DATE OF SERVICE: 11/16/19 Discharge Plan Patient Name: ALISA GOODEN Facility: [facility]:[place] : 1940 Planned Disposition: Home Anticipated Discharge Date: 11/16/19 Discharge Date: Expected LOS: 2 Initial Reviewer: [email or web address] Initial Review Date: 11/16/2019 Generated: 11/16/19 3:55 pm Comments DCP- Discharge Planning Updated by [email or web address]: Helder Rm on 11/16/19 1:[address] Patient Name: ALISA GOODEN Admission Status: ER Accout number: [id number] Admission Date: 11-14-2019 : 1940 Admission Diagnosis: Attending: FEDERICO JOHSNON Current LOS: 2 Anticipated DC Date: 11-16-2019 Planned Disposition: Home Primary Insurance: MEDICARE A & B Discharge Planning Comments: CM MET WITH PT AND SPOUSE IN ROOM TO DISCUSS DISCHARGE PLANNING AND NEEDS. ALISA GOODEN provided verbal consent to discuss current and ongoing needs with/in the presence of: SPOUSE, WILIAM. PT REPORTS LIVING AT HOME INDEPENDENTLY WITH HIS . PT HAS NO MEDICAL EQUIPMENT AND NO OUTSIDE SERVICES ASSISTING IN THE HOME. CM DISCUSSED AVAILABILITY OF HOME HEALTH, REHAB SERVICES AND MEDICAL EQUIPMENT. PT DENIES DISCHARGE NEEDS, REPORTS THEY HAVE A FRIEND WILL PICK PT AND SPOUSE UP FOR DISCHARGE HOME TODAY. SUPPLIER QUALITY SPECIALIST NURSE NOTIFIED. Retail Sales Associate: Helder Rm DCPIA - Discharge Planning Initial Assessment Updated by [email or web address]: Helder Rm on 11/16/19 2:51 pm * Is the patient Alert and Oriented? Yes * How many steps to enter\exit or inside your home? 0-I / 3-I * PCP DR. JOHNSON * Pharmacy [facility] * Preadmission Environment Home with Family * ADLs Independent * Equipment None * Other Equipment NO MEDICAL EQUIPMENT PROVIDER PREFERENCE * List name and contact numbers for known caregivers / representatives who currently or will assist patient after discharge: WILIAM GIACOMO, SPOUSE, * Verbal permission to speak to the caregivers and representatives has been obtained from the patient. Yes * Community resources currently utilized None * Please name any agencies selected above. NONE * Additional services required to return to the preadmission environment? No * Can the patient safely return to the preadmission environment? Yes * Has this patient been hospitalized within the prior 30 days at any hospital? No Patient Name: ALISA GOODEN Page [id number] at 1455 All edits/amendments must be made on the electronic document DICTATION DATE: 11/16/191454 GED INSTRUCTOR: MYRNA 11/16/196 RPT#: [id number] DC DATE: STATUS: ADM IN [facility] [address] [place] [address] END OF REPORT
--- NOTE | 2019-11-16 15:05 | NUR ---
PROVIDED VERBAL AND WRITTEN DISCHARGE TEACHING TO PT, WHO VERBALIZED UNDERSTANDING REGARDING TEACHING. D/C HAND IV WITH CATHETER TIP INTACT. HEART MONITOR REMOVED AND TAKEN TO JUNIOR QA ANALYST. PT WILL NOTIFY NURSE WHEN READY FOR WHEELCHAIR.
--- NOTE | 2019-11-16 15:13 | NUR ---
PT LEFT UNIT VIA WHEELCHAIR, WITH ALL BELONGINGS, ACCOMPANIED BY FAMILY, NAD NOTED.
== END 2019-11-16 15:14 | disposition home or self-care (01) | DRG 195 ==
LOC: D.ER 15:57 → D.M2 18:18
PROVIDERS: Family Medicine; ADMIT Family Medicine; ATTEND Family Medicine
DX: J18.9 Pneumonia, unspecified organism (principal); E11.9 Type 2 diabetes mellitus without complications; I25.10 Atherosclerotic heart disease of native coronary artery without angina pectoris; I48.0 Paroxysmal atrial fibrillation; E78.5 Hyperlipidemia, unspecified

== ENCOUNTER → 2020-03-05 18:35 | Outpatient (CLI) | payer MEDICARE, OTHER ==
[2019-11-14 20:25] VITALS: BMI 25.1
[~2020-03-05 18:35] MED LIST changes: +AUGMENTIN 875-11 TAB PO
[2020-03-05 21:12] LABS: ANION GAP 12.2 mmol/L (8-16); CALCIUM 9.3 mg/dL (8.5-10.1); CARBON DIOXIDE 30.2 mmol/L (21.0-32.0); CREATININE - SERUM 1.1 mg/dL (0.6-1.3); MAGNESIUM - SERUM 2.1 mg/dL (1.8-2.4); POTASSIUM - SERUM 4.4 mmol/L (3.5-5.1)
== END | disposition home or self-care (01) ==
LOC: D.LABREF 18:35
PROVIDERS: ATTEND Nurse Practitioner
DX: I10 Essential (primary) hypertension (principal); I49.5 Sick sinus syndrome

== ENCOUNTER → 2020-03-08 12:26 | Outpatient (CLI) | payer MEDICARE, OTHER ==
[2019-11-14 20:25] VITALS: BMI 25.1
== END | disposition home or self-care (01) ==
LOC: D.US 12:26
PROVIDERS: ATTEND Internal Medicine Cardiovascular Disease
DX: I70.213 Atherosclerosis of native arteries of extremities with intermittent claudication, bilateral legs (principal)

== ENCOUNTER → 2020-04-12 09:30 | Outpatient (CLI) | payer MEDICARE, OTHER ==
[2019-11-14 20:25] VITALS: BMI 25.1
== END | disposition home or self-care (01) ==
LOC: D.CT 09:30
PROVIDERS: ATTEND Internal Medicine Interventional Cardiology
DX: I70.213 Atherosclerosis of native arteries of extremities with intermittent claudication, bilateral legs (principal)